=== PATIENT | female | born 1985 | race Caucasian/White ===

== ENCOUNTER 2018-04-28 14:05 | Emergency (ER) | payer MEDICAID, OTHER ==
[2018-04-28 14:06] VITALS: BMI 22.8
[2018-04-28 14:34] VITALS: TEMP 98; O2SAT 100
[2018-04-28] MEDS ORDERED: Sodium Chloride 0.9% 500 ML IV STA ×2 (15:17→16:33)
--- NOTE | 2018-04-28 15:43 | ED PDOC ---
HPI: Female Pain Time Seen by Provider: 04/28/18 15:07 Chief Complaint (Nursing): Female Genitourinary Chief Complaint (Provider): Vaginal Bleeding and Right Shoulder Pain History Per: Patient History/Exam Limitations: no limitations Onset/Duration Of Symptoms: Days Quality Of Discomfort: Aching (right shoulder) Additional Complaint(s): 32 year old female presents to the ED for an evaluation of brown vaginal spotting at 5 weeks by LMP. Patient has started vitamins but not care. She has history of 2 ectopic pregnancies, the first of which ruptures requiring surgery and loss of her RIGHT fallopian tube. Currently, patient also reports of right shoulder pain described as aching for the last 2 weeks. Otherwise, patient denies pelvic pain, nausea or chronic illness. Also denies trauma, injury, numbness or weakness to the right shoulder. Of note, patient is: : 4 Para: 0 Miscarriage: 1 2 ectopic pregnancies PMD: No family provider Abnormal Vaginal Bleeding: Yes : 4 Para: 0 Miscarriage: 1 Against Medical Advice - AMA Patient Left Against Medical Advice: The patient declines admission to the hospital and wishes to leave the Emergency Department. This action is against my medical advice. This decision was made with informed refusal. The patient was told that admission to the hospital is necessary. Explanation of the reasons why were discussed. The risks of leaving were explained to the patient and include, but are not limited to, worsening of known or currently unknown conditions, permanent disability and from undiagnosed or untreated conditions. The patient has the capacity to make this informed decision and understands my explanation of the current medical problem and risks of leaving. The patient voluntarily accepts these risks and signed an AMA form documenting our conversation. The patient was given the opportunity to ask questions and reconsider. The patient was encouraged to return to the Emergency Department at any time for further care. Past Medical History Reviewed: Historical Data, Nursing Documentation, Vital Signs Vital Signs: Last Vital Signs Temp 98.0 F 04/28/18 14:32 Pulse 82 04/28/18 14:32 Resp 16 04/28/18 14:32 BP Pulse Ox 100 04/28/18 14:32 - Medical History PMH: Anxiety - Surgical History Other surgeries: Ectopic surgery - Family History Family History: States: No Known Family Hx - Social History Current smoker - smoking cessation education provided: No - Immunization History Hx Tetanus Toxoid Vaccination: No (unk) Hx Influenza Vaccination: No Hx Pneumococcal Vaccination: No (unk) - Home Medications Home Medications: Ambulatory Orders Medication Instructions Recorded Ibuprofen [Motrin] 600 mg PO Q6 #30 tab 01/10/18 Mupirocin 2% Ointment [Bactroban 1 appl TP TID #1 tube 01/10/18 Ointment] oxyCODONE/Acetaminophen [Percocet 1 ea PO QID #8 tab 01/10/18 5/325 mg Tab] - Allergies Allergies/Adverse Reactions: Allergies Allergy/AdvReac Type Severity Reaction Status Date / Time No Known Allergies Allergy Verified 01/10/18 16:16 Review of Systems ROS Statement: Except As Marked, All Systems Reviewed And Found Negative (As per HPI, otherwise negative) Gastrointestinal: Negative for: Nausea Genitourinary Female: Positive for: Vaginal Bleeding. Negative for: Pelvic Pain Musculoskeletal: Positive for: Shoulder Pain (right) Neurological: Negative for: Weakness, Numbness Physical Exam - Reviewed Nursing Documentation Reviewed: Yes Vital Signs Reviewed: Yes - Physical Exam Appears: Positive for: No Acute Distress Head Exam: Positive for: ATRAUMATIC, NORMOCEPHALIC Skin: Positive for: Warm, Dry Eye Exam: Positive for: EOMI, PERRL Neck: Positive for: Painless ROM, Supple Gastrointestinal/Abdominal: Positive for: Normal Exam, Soft, Other (negative for Juan's sign and negative for McBurney's point). Negative for: Tenderness, Mass, Guarding, Rebound Back: Positive for: Normal Inspection. Negative for: Muscle Spasm Extremity: Positive for: Normal ROM (full of right shoulder), Other (distal neurovascular intact of right shoulder). Negative for: Deformity, Swelling Lymphatic: Negative for: Adenopathy Neurologic/Psych: Positive for: Alert. Negative for: Motor/Sensory Deficits - Laboratory Results Result Diagrams: 04/28/18 16:15 04/28/18 16:15 - ECG O2 Sat by Pulse Oximetry: 100 (RA) Pulse Ox Interpretation: Normal Medical Decision Making Medical Decision Making: Time: 1516 Impression: vaginal spotting in early Differential Diagnosis: threatened mischarge, UTI, vaginitis, ectopic , dehydration Plan: * Type and screen * Beta, HCG, Quantitative * CMP * ED urine * ED Urine dipstick * CBC w/ differential * Partial Thromboplastin time * Prothrombin time [COAG] * Chlamydia/ GC RNA, TMA * Normal Saline 500mls/hr * IV insertion * OB transvaginal [US] * Reevaluation 16:52 Transvaginal US FINDINGS: UTERUS: Measures 3.7 x 4.6 x 6.4 cm. Normal in size and appearance. Location of fibroid and size: Submucosal lower uterine segment 4 x 8 x 9 mm. ENDOMETRIUM: Measures 14.7 mm in diameter. Endometrial hypertrophy. No ultrasound findings to suggest gestational sac, fluid, debris, mass or polyp or other pathologic process within the endometrium. CERVIX: No cervical abnormality identified. RIGHT OVARY: Measures 1.6 x 1.8 x 1.6 cm. No solid mass. Normal flow. LEFT OVARY: Measures 2 x 2.8 cm. Solid mass/hemorrhagic cyst 1.2 x 1 cm. Normal flow. Simple cyst 1 x 1.2 cm. FREE FLUID: No significant free fluid noted. OTHER FINDINGS: None. IMPRESSION: Endometrial hypertrophy without visible products of conception. Complex cyst/mass left adnexa. Simple cyst left adnexa. betahcg 4960 DW pt findings, which are very suspicious for recurrent ectopic . DW Dr Kirby OB fellow and Dr Angel CAPPS oncall. Pt advised to have methotrexate to terminate since ectopic can lead to acute abdomen, hemorrhage and . Pt refused and signed out AMA. Scribe Attestation: Documented by Robert Apple acting as a scribe for Diane Mtz MD Provider Scribe Attestation: All medical record entries made by the Scribe were at my direction and pe rsonally dictated by me. I have reviewed the chart and agree that the record accurately reflects my personal performance of the history, physical exam, medical decision making, and the department course for this patient. I have also personally directed, reviewed, and agree with the discharge instructions and disposition. Disposition - Clinical Impression Clinical Impression: Ectopic Counseled Patient/Family Regarding: Studies Performed, Diagnosis - Disposition [facility] Disposition: Against Medical Advice Disposition Time: 19:00 Condition: UNKNOWN Additional Instructions: RETURN TO ER IMMEDIATELY FOR FURTHER MANAGEMENT Instructions: Ectopic (DC), Leaving Against Medical Advice
[2018-04-28 16:27] LABS: BASO # 0.1 K/uL (0.0-0.2); BASO % 0.7 % (0.0-2.0); EOS # 0.2 K/uL (0.0-0.7); EOS % 1.7 % (0.0-4.0); HEMOGLOBIN 14.3 g/dL (12.0-16.0); LYMPH % 26.6 % (20.0-40.0); MEAN CELL VOLUME 93.1 fl (81.0-99.0); MEAN CORPUSCULAR HEMOGLOBIN 31.5 pg (27.0-31.0); MEAN CORPUSCULAR HGB CONC 33.9 g/dL (33.0-37.0); MEAN PLATELET VOLUME 7.4 fl (7.2-11.7); MONO # 0.7 K/uL (0.0-0.8); MONO % 5.9 % (0.0-10.0); NEUT # 7.3 K/uL (1.8-7.0); NEUT % 65.1 % (50.0-75.0); NRBC % 0.1 % (0.0-0.0); RBC 4.53 Mil/uL (3.80-5.20); RED CELL DISTRIBUTION WIDTH 13.3 % (11.5-14.5); WHITE BLOOD COUNT 11.2 K/uL (4.8-10.8)
[2018-04-28 16:39] LABS: ALB/GLOB RATIO 1.5 (1.0-2.1); ALBUMIN 4.8 g/dL (3.5-5.0); ALT/SGPT 24 U/L (9-52); AST/SGOT 32 U/L (14-36); BLOOD UREA NITROGEN 16 mg/dl (7-17); CALCIUM 9.8 mg/dL (8.4-10.2); GFR NON-AFRICAN AMERICAN > 60
[2018-04-28 16:55] LABS: PROTHROMBIN TIME 11.7 Seconds (9.8-13.1)
--- NOTE | 2018-04-28 16:56 | US ---
Date of service: 04/28/2018 HISTORY: preg h/o ectopic vag bleed LMP 03/05/2018. Beta HCG results: None available COMPARISON: None available. TECHNIQUE: Standard protocol for this study/examination. FINDINGS: UTERUS: Measures 3.7 x 4.6 x 6.4 cm. Normal in size and appearance. Location of fibroid and size: Submucosal lower uterine segment 4 x 8 x 9 mm. ENDOMETRIUM: Measures 14.7 mm in diameter. Endometrial hypertrophy. No ultrasound findings to suggest gestational sac, fluid, debris, mass or polyp or other pathologic process within the endometrium. CERVIX: No cervical abnormality identified. RIGHT OVARY: Measures 1.6 x 1.8 x 1.6 cm. No solid mass. Normal flow. LEFT OVARY: Measures 2 x 2.8 cm. Solid mass/hemorrhagic cyst 1.2 x 1 cm. Normal flow. Simple cyst 1 x 1.2 cm. FREE FLUID: No significant free fluid noted. OTHER FINDINGS: None. IMPRESSION: Endometrial hypertrophy without visible products of conception. Complex cyst/mass left adnexa. Simple cyst left adnexa.
--- NOTE | 2018-04-28 18:53 | CP.PCM.CON ---
<Aggie Kirby - Last Filed: 04/28/18 19:16> History of Present Illness - History of Present Illness History of Present Illness: Annie is a 32 year old at approximately 5 weeks gestation. She was seen in the ER today for complaints of vaginal spotting. She has a history of 2 previous ectopic pregnancies and 1 SAB. Her ectopics were treated with both a R salpingectomy followed by methotrexate for her second ectopic located in her L tube. She has been trying to conceive for the last year and even tried Clomid last year with no success. Over the last 1-2 days she noted a small amount of brownish discharge after she had taken a positive home test. Denies abdominal pain. Review of Systems - Constitutional Constitutional: absent: Anorexia, Fever - Gastrointestinal Gastrointestinal: absent: Abdominal Pain, Diarrhea, Vomiting - Genitourinary Genitourinary: absent: Flank Pain, Hematuria, Pyuria, Urinary Frequency - Reproductive: Female Reproductive:Female: Light Menses. absent: Pelvic Pain, Vaginal Odor Past Patient History - Infectious Disease Hx of Infectious Diseases: None - Past Medical History & Family History Past Medical History?: Yes - Past Social History Smoking Status: Former Smoker - ENDOCRINE/METABOLIC Hx Endocrine Disorders: No - HEMATOLOGICAL/ONCOLOGICAL Hx Blood Disorders: No - MUSCULOSKELETAL/RHEUMATOLOGICAL Hx Falls: No - GENITOURINARY/GYNECOLOGICAL Hx Reproductive Disorders: Yes ( ) Hx Sexually Transmitted Disorders: Yes (Reports chalmydia at age 16, denies a history of PID) Other/Comment: First ectopic was in 2013, needed a R salpingectmy. Second ectopic was 4 months later, treated with methotrexate. SAB last year. Reports that she has seen a Repoductive Medicine Specialist and even had a hy sterosalpingogram showing a patent L tube. She is unsure why she has had several ectopics. - PSYCHIATRIC Hx Anxiety: Yes - SURGICAL HISTORY Hx Surgeries: Yes Other/Comment: ectopic surgery - ANESTHESIA Hx Anesthesia: Yes Hx Anesthesia Reactions: No Meds Allergies/Adverse Reactions: Allergies Allergy/AdvReac Type Severity Reaction Status Date / Time No Known Allergies Allergy Verified 01/10/18 16:16 Physical Exam - Constitutional Appears: Well, Non-toxic, No Acute Distress - Head Exam Head Exam: ATRAUMATIC - Eye Exam Eye Exam: EOMI, Normal appearance, PERRL - Respiratory Exam Respiratory Exam: NORMAL BREATHING PATTERN - Cardiovascular Exam Cardiovascular Exam: REGULAR RHYTHM - GI/Abdominal Exam GI & Abdominal Exam: Soft. absent: Distended, Firm, Guarding, Rebound, Rigid, Tenderness Results - Vital Signs Recent Vital Signs: Last Vital Signs Temp 98.0 F 04/28/18 14:32 Pulse 82 04/28/18 14:32 Resp 16 04/28/18 14:32 BP Pulse Ox 100 04/28/18 17:20 - Labs Result Diagrams: 04/28/18 16:15 04/28/18 16:15 Labs: Laboratory Results - last 24 hr 04/28/18 04/28/18 04/28/18 16:15 16:15 16:15 WBC 11.2 H RBC 4.53 Hgb 14.3 Hct 42.2 MCV 93.1 MCH 31.5 H MCHC 33.9 RDW 13.3 Plt Count 390 MPV 7.4 Neut % (Auto) 65.1 Lymph % (Auto) 26.6 Burke % (Auto) 5.9 Eos % (Auto) 1.7 Baso % (Auto) 0.7 Neut # (Auto) 7.3 H Lymph # (Auto) 3.0 Burke # (Auto) 0.7 Eos # (Auto) 0.2 Baso # (Auto) 0.1 PT 11.7 INR 1.0 APTT 33.0 Sodium 138 Potassium 4.1 Chloride 97 L Carbon Dioxide 27 Anion Gap 18 BUN 16 Creatinine 0.8 Est GFR ( Amer) > 60 Est GFR (Non-Af Amer) > 60 Random Glucose 93 Calcium 9.8 Total Bilirubin 0.3 AST 32 ALT 24 Alkaline Phosphatase 64 Total Protein 8.1 Albumin 4.8 Globulin 3.3 Albumin/Globulin Ratio 1.5 Beta HCG, Quant 4958.60 Blood Type Antibody Screen BBK History Checked 04/28/18 16:15 WBC RBC Hgb Hct MCV MCH MCHC RDW Plt Count MPV Neut % (Auto) Lymph % (Auto) Burke % (Auto) Eos % (Auto) Baso % (Auto) Neut # (Auto) Lymph # (Auto) Burke # (Auto) Eos # (Auto) Baso # (Auto) PT INR APTT Sodium Potassium Chloride Carbon Dioxide Anion Gap BUN Creatinine Est GFR ( Amer) Est GFR (Non-Af Amer) Random Glucose Calcium Total Bilirubin AST ALT Alkaline Phosphatase Total Protein Albumin Globulin Albumin/Globulin Ratio Beta HCG, Quant Blood Type A POSITIVE Antibody Screen Negative BBK History Checked Patient has bt - Impressions Impression: Patient had a transvaginal US showing heterogeneous and thickened endometrium per radiologist as well as a suspicious complex cyst in the L ovary measuring approximately 1.5cm. Images were reviewed by me and there also appears to be a teardrop shaped abnormal fluid collection in the fundus with no decidual reaction and no gestational sac or yolk sac visualized. Assessment & Plan (1) Ectopic Assessment and Plan: 32 year old with a history of 2 previous ectopic pregnancies here with vaginal spotting and US ad laboratory findings suspicious for a third ectopic . At a quantitative BhCG of 4900 and an estimated gestational age of 5 1/2 weeks there should be findings on transvaginal US consistent with an IUP, such as a gestational and yolk sac. The L ovarian mass is also highly concerning for an extra-uterine . This was explained to the patient in detail. She was upset by the news given that she has been trying to conceive for over a year. After discussing the risks and benefits of proceeding with empiric treatment for an ectopic the patient declined to be treated at this time. She is still hopeful that this will wood turner to be viable, though she was advised that that is highly unlikely. - Patient signed form for refusal of treatment - Reviewed the risks of refusing treatment at this time, including ruptured ectopic, bleeding requiring blood transfusion and possibly , need for emergency surgery and the potential for necessary removal of the L fallopian tube and/or ovary which could impact future fertility - The patient did agree to return to the ED in 2-3 days for repeat beta hCG and transvaginal US to assess progression of the - Patient was given a copy of her records in case she goes to another hospital facility Status: Acute <Jonah Ortiz - Last Filed: 04/28/18 19:54> Results - Vital Signs Recent Vital Signs: Last Vital Signs Temp 98.0 F 04/28/18 14:32 Pulse 92 H 04/28/18 18:52 Resp 18 04/28/18 18:52 BP 138/86 04/28/18 18:52 Pulse Ox 100 04/28/18 18:52 - Labs Result Diagrams: 04/28/18 16:15 04/28/18 16:15 Labs: Laboratory Results - last 24 hr 04/28/18 04/28/18 04/28/18 16:15 16:15 16:15 WBC 11.2 H RBC 4.53 Hgb 14.3 Hct 42.2 MCV 93.1 MCH 31.5 H MCHC 33.9 RDW 13.3 Plt Count 390 MPV 7.4 Neut % (Auto) 65.1 Lymph % (Auto) 26.6 Burke % (Auto) 5.9 Eos % (Auto) 1.7 Baso % (Auto) 0.7 Neut # (Auto) 7.3 H Lymph # (Auto) 3.0 Burke # (Auto) 0.7 Eos # (Auto) 0.2 Baso # (Auto) 0.1 PT 11.7 INR 1.0 APTT 33.0 Sodium 138 Potassium 4.1 Chloride 97 L Carbon Dioxide 27 Anion Gap 18 BUN 16 Creatinine 0.8 Est GFR ( Amer) > 60 Est GFR (Non-Af Amer) > 60 Random Glucose 93 Calcium 9.8 Total Bilirubin 0.3 AST 32 ALT 24 Alkaline Phosphatase 64 Total Protein 8.1 Albumin 4.8 Globulin 3.3 Albumin/Globulin Ratio 1.5 Beta HCG, Quant 4958.60 Blood Type Antibody Screen BBK History Checked 04/28/18 16:15 WBC RBC Hgb Hct MCV MCH MCHC RDW Plt Count MPV Neut % (Auto) Lymph % (Auto) Burke % (Auto) Eos % (Auto) Baso % (Auto) Neut # (Auto) Lymph # (Auto) Burke # (Auto) Eos # (Auto) Baso # (Auto) PT INR APTT Sodium Potassium Chloride Carbon Dioxide Anion Gap BUN Creatinine Est GFR ( Amer) Est GFR (Non-Af Amer) Random Glucose Calcium Total Bilirubin AST ALT Alkaline Phosphatase Total Protein Albumin Globulin Albumin/Globulin Ratio Beta HCG, Quant Blood Type A POSITIVE Antibody Screen Negative BBK History Checked Patient has bt Assessment & Plan - Assessment and Plan (Free Text) Assessment: OB Hospitalist on-call - called for consultation Ectopic preg - Detailed discussion about her medical condition - including evaluation,risks, complications, and medication vs surgical treatment. Her questions answered. She understood. She refused treatment and signed AMA form after counselling. ER physicians aware. She was given copies of all labs/sonogram reports. LEEANN
[2018-04-28 19:32] VITALS: BP 138/86; PULSE 92; RESP 18
== END 2018-04-28 18:52 | disposition home or self-care (01) ==
LOC: H.ER 14:05
DX: O00.90 Unspecified ectopic pregnancy without intrauterine pregnancy (principal); R93.89 Abnormal findings on diagnostic imaging of other specified body structures; Z3A.01 Less than 8 weeks gestation of pregnancy; Z87.891 Personal history of nicotine dependence
CPT/HCPCS: 76817; 80053; 81025; 84702; 85025; 85610; 85730; 86850; 86900; 87491; 87591; 96360; 99284; J7040